=== PATIENT | male | born 1980 | race Caucasian/White ===

== ENCOUNTER 2016-05-04 03:17 | Inpatient (IN) | payer OTHER ==
[~2016-05-04] VITALS: Ht 167.6 cm; Wt 85.3 kg
[~2016-05-04 03:17] MED LIST: ASPI-664 PO; CARV3.1260 PO; DIGO250T PO; FURO20TA3 PO; LOSA50TA2 PO
--- NOTE | 2016-05-04 03:54 | ERA ---
ER Documentation Chief Complaint Date/Time DATE: 05/04/16 TIME: 03:54 Chief Complaint SOB HPI The patient is a 35-year-old male, presenting to the ER because of acute dyspnea for the last 3 days, worse today, associated with bilateral leg edema. He has similar symptoms previously due to acute CHF exacerbation. He did not take medication for the last 2 months. He denies fever, chills, neck pain, chest pain. He complains of orthopnea and paroxysmal nocturnal dyspnea. Denies abdominal pain, vomiting, diarrhea, constipation. He smokes, denies drinking, does amphetamine Past medical history: History of CHF, hypertension, cardiomyopathy Past surgical history: None ROS All systems reviewed and are negative except as per history of present illness. Medications Home Meds Active Scripts Furosemide* (Furosemide*) 20 Mg Tablet, 20 MG PO DAILY, #60 TAB Prov:BRET KAUFMAN MD 12/21/15 Losartan Potassium* (Cozaar*) 50 Mg Tablet, 100 MG PO DAILY for 30 Days, #30 TAB Prov:BRET KAUFMAN MD 12/21/15 Digoxin* (Digitek*) 250 Mcg Tablet, 0.25 MG PO QHS for 30 Days, #30 TAB Prov:BRET KAUFMAN MD 12/21/15 Carvedilol* (Carvedilol*) 3.125 Mg Tablet, 3.125 MG PO BID for 30 Days, #60 TAB Prov:BRET KAUFMAN MD 12/21/15 Aspirin* (Aspirin* EC) 81 Mg Tablet.dr, 81 MG PO DAILY for 30 Days Prov:BRET KAUFMAN MD 12/21/15 Allergies Allergies: Coded Allergies: No Known Allergy (Unverified , 12/20/15) PMhx/Soc Anesthesia Reaction: No Hx Neurological Disorder: No Hx Respiratory Disorders: No Hx Cardiac Disorders: No (CHF, HTN) Hx Psychiatric Problems: No Hx Miscellaneous Medical Probl: No Hx Alcohol Use: No (Only socially) Hx Substance Use: Yes (Meth) Hx Tobacco Use: Yes Physical Exam Vitals Vital Signs Date Time Temp Pulse Resp B/P Pulse Ox O2 Delivery O2 Flow Rate FiO2 05/04/16 04:19 Nasal Cannula 2 05/04/16 03:21 97.5 120 28 183/133 98 Physical Exam Const: No acute distress. Head: Atraumatic. Eyes: Normal Conjunctiva. ENT: Normal External Ears, Nose and Mouth. Neck: Full range of motion. No meningismus. Resp: Bibasilar crackles Cardio: Regular but tachycardic Abd: Soft, non distended, normal bowel sounds, non tender. Skin: No petechiae or rashes. Back: No midline or flank tenderness. Ext: Mild bilateral lower extremity edema, no calf tenderness Neur: Awake and alert. No focal deficit Psych: Normal Mood and Affect. Result Diagram: 05/04/1641905/04/16419 Results 24 hrs Laboratory Tests Test 05/04/16 04:20 Activated Partial Thromboplast Time 33.2Sec Anion Gap 17 B-Type Natriuretic Peptide 4300PG/ML Basophils # 0.010^3/ul Basophils % 0.3% Blood Urea Nitrogen 18mg/dl Calcium Level 8.9mg/dl Carbon Dioxide Level 24mmol/L Chloride Level 107mmol/L Cholesterol Level 129mg/dl Cholesterol/HDL Ratio 5.1RATIO Creatine Kinase 259IU/L Creatine Kinase Index 0.7 Creatinine 1.10mg/dl Creatinine Kinase MB (Mass) 1.90ng/ml Eosinophils # 0.310^3/ul Eosinophils % 3.0% Ethyl Alcohol Level < 10.0mg/dl Glucose Level 100mg/dl HDL Cholesterol 25mg/dl Hematocrit 47.9% Hemoglobin 15.7g/dl Hemoglobin A1c 5.7% INR International Normalized Ratio 1.25 LDL Cholesterol, Calculated 77mg/dl Lymphocytes # 2.210^3/ul Lymphocytes % 25.0% Magnesium Level 1.8mg/dl Mean Corpuscular Hemoglobin 31.6pg Mean Corpuscular Hemoglobin Concent 32.7g/dl Mean Corpuscular Volume 96.6fl Mean Platelet Volume 8.5fl Monocytes # 0.610^3/ul Monocytes % 7.1% Neutrophils # 5.810^3/ul Neutrophils % 64.6% Nucleated Red Blood Cells # 0.010^3/ul Nucleated Red Blood Cells % 0.0/100WBC Platelet Count 56474^3/UL Potassium Level 3.9mmol/L Prothrombin Time 15.8Sec Prothrombin Time Ratio 1.2 Red Blood Count 4.9610^6/ul Red Cell Distribution Width 13.6% Sodium Level 144mmol/L Thyroid Stimulating Hormone (TSH) 4.170MIU/L Triglycerides Level 136mg/dl Troponin I 0.045ng/ml Urine Amphetamines Screen POSITIVE Urine Barbiturates Negative Urine Benzodiazepines Screen Negative Urine Cannabinoids Negative Urine Cocaine Screen Negative Urine Opiates Screen Negative White Blood Count 9.010^3/ul Current Medications Medications (Trade) Dose Ordered Sig/Jeff Route PRN Reason Start Time Stop Time Status Last Admin Dose Admin Furosemide (Lasix) 40 mg ONCE ONCE IV 05/04/16 04:00 05/04/16 04:01 DC 05/04/16 04:26 Procedures/MDM EKG: Read by emergency physician Rate/Rhythm: Sinus tachycardia 118 beats/min QRS, ST, T-waves: No ST elevation, no T inversion, by atrial enlargement, rightward axis, nonspecific ST abnormality Impression: Abnormal EKG EKG: Read by emergency physician at 4:11 AM Rate/Rhythm: Sinus tachycardia 104 beats/min QRS, ST, T-waves: No ST elevation, no T inversion, biatrial enlargement, nonspecific ST abnormality Impression: Abnormal EKG MEDICAL MAKING DECISION: The patient is a 35-year-old male, presenting with acute CHF exacerbation due to medical noncompliance, amphetamine abuse, acute accelerated hypertension. He was treated with Lasix 40 mg IV with good response. The differential diagnoses considered include but are not limited to asthma, COPD, pneumonia, pulmonary embolus, pleural effusion, congestive heart failure. Departure Diagnosis: Primary Impression: CHF (congestive heart failure) Additional Impressions: Accelerated hypertension Amphetamine abuse Condition: Stable Comments I discussed the findings with the patient. I discussed the patient with the on- call hospitalist Dr. Pike who was made aware of the lab, the treatment, the patient condition. The patient is admitted to I discussed the findings with the patient. I discussed the patient with his physician who was made aware of the lab, the treatment, the patient condition. The patient is admitted to telemetry MINNA MOREL MD May 04, 2016 03:54
[2016-05-04] MEDS ORDERED: FUROSEMIDE 40 MG INJ IV ONE ×2 (04:00→08:00)
--- NOTE | 2016-05-04 04:47 | RADRPT ---
PROCEDURE: CHEST - 1 VIEW CLINICAL INDICATION: 35-year-old male with shortness of breath. TECHNIQUE: A single frontal AP semi-erect view of the chest was performed portably. The images we re reviewed on a PACS workstation. COMPARISON: Chest x-ray December 20, 2015. FINDINGS: The cardiomediastinal silhouette is moderately enlarged. There is mild pulmonary vascular congestio n. There is elevation right hemidiaphragm. There is no evidence for focal consolidation. There is no evidence for pneumothorax. The osseous structures are intact. IMPRESSION: 1. Cardiomegaly. 2. Pulmonary vascular congestion. .Mateo Abreu MD, MD Date Time Electronically viewed and signed by .Mateo Abreu MD, on 05/04/2016 04:47 .M/
--- NOTE | 2016-05-04 04:48 | HP ---
Date/Time of Note Date/Time of Note DATE: 05/04/16 TIME: 04:41 Assessment/Plan VTE Prophylaxis VTE Prophylaxis Intervention: heparin Assessment/Plan Assessment/Plan 35 yo male with a past medical history of cardiomyopathy with low EF 20% 2/2 to methamphetamine abuse, smoker, CHF with systolic dysfunction, who came in for shortness of breath. 1. Shortness of breath 2/2 to CHF exac acute on chronic systolic dysfunction - will admit the patient to telemetry, cycle cardiac markers, consult cardio, check ECHO, TSH/Mag levels, IV lasix, I/O's 2. Methamphetamine abuse - consult to social services counselor 3. Cardiomyopathy with low EF - 20% - see #1 4. GI ppx - pepcid 5. DVT ppx - heparin answered all of his questions. as per clinical course. this history and physical took greater then 45 minutes to complete HPI/ROS Admit Date/Time Admit Date/Time 05/04/2016, 4:42 am Hx of Present Illness 35 yo male with a past medical history of cardiomyopathy with low EF 20% 2/2 to methamphetamine abuse, smoker, CHF with systolic dysfunction, who came in for shortness of breath. He smoked methamphetamines yesterday morning, and since then he had shortness of breath, with lower extremity edema. Otherwise denies any chest pain, loss of consciousness, nausea/vomiting/diarrhea/fevers/chills, or other constitutional symptoms. ED course: IV lasix ECHO 12/2015 Conclusions 1. Mild concentric left ventricular hypertrophy. Mild enlargement of left ventricle cavity. Severe global left ventricular systolic dysfunction. Ejection fraction is visually estimated at 20 %. Tissue Doppler/Mitral Doppler indices are consistent with restrictive physiology with markedly elevated left atrial pressure (Stage III-IV diastolic dysfunction). 2. Upper limit of normal left atrial size. 3. Mitral valve leaflets appear mildly thickened. Mild mitral annular calcification. Trace mitral regurgitation. 4. No significant aortic stenosis or insufficiency. Aortic cusps appear mildly calcified. 5. Normal appearance of the tricuspid valve. Estimated peak PA systolic pressure 32 mmHg. There is mild tricuspid regurgitation. 6. Dilated IVC with respiratory collapse consistent with elevated right atrial pressure. ROS 14 point review of systems completed, please refer to HPI for any positive findings PMH/Family/Social Past Medical History Medical History: congestive heart failure Past Surgical History Past Surgical Hx: no surgical history Family History Significant Family History: no pertinent family hx Social History Alcohol Use: none Smoking Status: Current every day smoker (5 cig/day x 4 years) Drug Use: other (methamphetamines) Exam/Review of Systems Vital Signs Vitals Vital Signs Date Time Temp Pulse Resp B/P Pulse Ox O2 Delivery O2 Flow Rate FiO2 05/04/16 04:19 Nasal Cannula 2 05/04/16 03:21 97.5 120 28 183/133 98 Exam Exam Gen Yvette: NAD, AAOx4 HEENT: NC/AT, PERRLA, EOMI, no pharyngeal erythema, no tonsillar exudates, no lymphadenopathy, no JVD, no carotid bruits NECK: supple, no thyromegaly THORAX: symmetrical, no obvious deformities CV: S1S2, RRR, no M/G/R Lungs: CTAB no W/C/R/R Abd: soft, NT/ND, +BS, no rebound, no guarding, neg HSM EXT: bilateral lower extremity edema, no ecchymosis, no clubbing, FROM Neuro: CN II-XII grossly intact, no focal deficits Psych: good mentation, alert and oriented, good mood and affect Skin: C/D/I Procedures Procedures CXR IMPRESSION: 1. Cardiomegaly. 2. Pulmonary vascular congestion. OLI QUILES MD May 04, 2016 04:48
[2016-05-04 04:50] LABS: BASOPHILS % 0.3 % (0.0-2.0); EOSINOPHILS # 0.3 10^3/ul (0.0-0.5); HEMATOCRIT 47.9 % (42.0-52.0); HEMOGLOBIN 15.7 g/dl (14.0-18.0); LYMPHOCYTES # 2.2 10^3/ul (0.8-2.9); MEAN CORPUSCULAR HEMOGLOBIN 31.6 pg (29.0-33.0); MEAN CORPUSCULAR HGB CONC 32.7 g/dl (32.0-37.0); MEAN CORPUSCULAR VOLUME 96.6 fl (82.0-101.0); MEAN PLATELET VOLUME 8.5 fl (7.4-10.4); MONOCYTE # 0.6 10^3/ul (0.3-0.9); MONOCYTES % 7.1 % (0.0-11.0); NEUTROPHIL # 5.8 10^3/ul (1.6-7.5); NEUTROPHILS % 64.6 % (39.0-77.0); PLATELET COUNT 298 10^3/UL (140-440); RED BLOOD COUNT 4.96 10^6/ul (4.70-6.10); RED CELL DISTRIBUTION WIDTH 13.6 % (11.5-14.5)
[2016-05-04 04:53] LABS: CONDITION 1
[2016-05-04 04:57] LABS: CHLORIDE 107 mmol/L (97-110); POTASSIUM 3.9 mmol/L (3.5-5.1); SODIUM 144 mmol/L (135-144)
[2016-05-04 04:59] LABS: INR 1.25; PROTIME 15.8 Sec (12.2-14.2); PT RATIO 1.2
[2016-05-04 05:00] LABS: ANION GAP 17 (8-16); BLOOD UREA NITROGEN 18 mg/dl (7-20); CARBON DIOXIDE 24 mmol/L (21-31); GLUCOSE 100 mg/dl (70-220); PARTIAL THROMBOPLASTIN TIME 33.2 Sec (25.0-35.0)
[2016-05-04] MEDS ORDERED: NACL 0.9% 3 ML SYG IV SCH (05:00)
[2016-05-04] MEDS ORDERED: ONDANSETRON 4 MG INJ IV PRN (05:00)
[2016-05-04] MEDS ORDERED: ACETAMINOPHEN 325 MG TAB PO PRN (05:00)
[2016-05-04] MEDS ORDERED: NITROGLYCERIN (SL) 0.4 MG TAB SL PRN (05:00)
[2016-05-04] MEDS ORDERED: LORAZEPAM 2 MG INJ IV PRN (05:00)
[2016-05-04 05:01] LABS: BARBITURATES Negative (NEGATIVE); BENZODIAZEPINES Negative (NEGATIVE); CALCIUM 8.9 mg/dl (8.4-10.2); CANNABINOIDS Negative (NEGATIVE); COCAINE Negative (NEGATIVE); ETHANOL < 10.0 mg/dl; OPIATES Negative (NEGATIVE)
[2016-05-04 05:11] LABS: B-TYPE NATRIURETIC PEPTIDE 4300 PG/ML (0-125)
[2016-05-04 05:14] LABS: TROPONIN-I 0.036 ng/ml (0.00-0.12)
[2016-05-04 07:11] LABS: CHOL/HDL RATIO 5.1 RATIO; MAGNESIUM 1.8 mg/dl (1.7-2.5)
[2016-05-04 07:19] LABS: CK-MB 1.9 ng/ml (0.0-2.4)
[2016-05-04 07:21] LABS: TROPONIN-I 0.045 ng/ml (0.00-0.12)
[2016-05-04] MEDS ORDERED: MAGNESIUM SULFATE 2 GM/50 ML 50 ML IVPB ONE (07:30)
[2016-05-04 07:41] LABS: THYROID STIMULATING HORMONE 4.17 MIU/L (0.465-4.680)
[2016-05-04] MEDS ORDERED: HEPARIN 5,000 UNIT/0.5 ML SYG SC SCH (09:00)
[2016-05-04] MEDS: FAMOTIDINE 20 MG TAB PO SCH ×2 (09:22→20:57)
[2016-05-04] MEDS: ASPIRIN 81 MG TAB PO SCH (09:22)
--- NOTE | 2016-05-04 09:37 | RADRPT ---
Echocardiogram Report Patient Name: ELVIRA ROWAN Gender: Male Date: 1980 Study Date: 04-May-2016 Engineering Faculty Member: Luz Marina Jessica RDCS Location: Ref. Physician: OLI QUILES Quality: Good Procedures: Transthoracic echocardiogram with complete 2D, M-Mode, and doppler examination. Indications: Congestive Heart Failure. 2D/M Mode Doppler Measurement Value Normal Ranges Measurement Value Normal Ranges LVIDd 2D 5.2 3.5 - 5.6 cm AV Peak Sudeep 1.1 m/sec LVIDs 2D 5.0 2.1 - 4.1 cm AV Peak PG 4.4 mmHg LVPWd 2D 1.3 0.6 - 1.1 cm LVOT Peak Sudeep 0.6 m/sec IVSd 2D 1.3 0.6 - 1.1 cm LVOT Peak PG 1.5 mmHg AoR Diam 2D 2.5 2.0 - 3.7 cm TR Peak Sudeep 2.4 m/sec EDV 2D 131.3 cm3 TR Peak PG 23.5 mmHg ESV 2D 123.3 cm3 RVSP 39.0 mmHg LA Dimen 2D 4.1 2.3 - 4.0 cm Findings Left Ventricle: Mild concentric left ventricular hypertrophy. Mild enlargement of left ventricle cavity. Severe global left ventricular systolic dysfunction. Ejection fraction is visually estimated at 15 %. There is global hypokinesis involving all segments of the left ventricle. Right Ventricle: Normal right ventricular size. Moderate right ventricular hypokinesis. Left Atrium: There is mild enlargement of left atrium. Right Atrium: The right atrium is normal in size. Mitral Valve: Normal appearance and function of the mitral valve with trace physiologic regurgitation. Aortic Valve: Normal appearance of the aortic valve. No significant aortic stenosis or insufficiency. Tricuspid Valve: Normal appearance of the tricuspid valve. Estimated peak PA systolic pressure 39 mmHg. There is mild tricuspid regurgitation. Pulmonic Valve: There is mild pulmonic regurgitation. Pericardium: Normal pericardium with no significant pericardial effusion. Aorta: Normal aortic root. IVC: Dilated IVC without respiratory collapse consistent with elevated right atrial pressure. Conclusions 1.Mild concentric left ventricular hypertrophy. Mild enlargement of left ventricle cavity. Severe global left ventricular systolic dysfunction. Ejection fraction is visually estimated at 15 %. There is global hypokinesis involving all segments of the left ventricle. apical thrombus can not be ruled out. 2.There is mild enlargement of left atrium. 3.Normal appearance and function of the mitral valve with trace physiologic regurgitation. 4.Normal appearance of the tricuspid valve. Estimated peak PA systolic pressure 39 mmHg. There is mild tricuspid regurgitation. 5.Normal appearance of the aortic valve. No significant aortic stenosis or insufficiency. Electronically Signed By: Warren Johnston 04-May-2016 09:36:57 -0800 Patient Name: ELVIRA ROWAN Study Date: 04-May-[id number]
[2016-05-04] MEDS ORDERED: DIGOXIN 500 MCG INJ IV ONE (10:00)
--- NOTE | 2016-05-04 11:10 | QN ---
Documentation Comment The patient was seen and evaluated. Labs reviewed. Plan of care was explained to the patient's family. Case discussed with Dr. Floyd. YOLIS SOTO NP May 04, 2016 11:10
[2016-05-04] MEDS: RIVAROXABAN 20 MG TABLET PO SCH (11:16)
[2016-05-04] MEDS: LISINOPRIL 20 MG TAB PO SCH ×2 (11:16→20:57)
[2016-05-04 12:06] LABS: CK-MB 1.82 ng/ml (0.0-2.4)
[2016-05-04 12:30] VITALS: TEMP 96.4
[2016-05-04 12:30] LABS: TROPONIN-I 0.034 ng/ml (0.00-0.12)
--- NOTE | 2016-05-04 14:19 | QN ---
Documentation Comment Observation Note: Time: 4 hours Family Hx: Negative for diabetes Evaluation: Multiple exams showed improving symptoms and no evidence of clinical decompensation. VERO JONES MD May 04, 2016 14:19
[2016-05-04] MEDS: hydrALAzine 20 MG INJ IV PRN (16:16)
[2016-05-04 17:00] VITALS: BP 140/89; PULSE 104; RESP 20
[2016-05-04 17:36] VITALS: Ht 167.6 cm; Wt 85.3 kg
[2016-05-04 17:43] VITALS: PULSE 105
[2016-05-04 19:54] VITALS: BP 161/103; RESP 18
[2016-05-04 20:03] VITALS: PULSE 99
--- NOTE | 2016-05-04 21:19 | CONS ---
DATE OF ADMISSION: 05/04/2016 DATE OF CONSULTATION: TYPE OF CONSULTATION: Cardiology REFERRING PHYSICIAN: Dima Pike MD REASON FOR CONSULTATION: Congestive heart failure. CHIEF COMPLAINT: Shortness of breath, tachycardia. HISTORY OF PRESENT ILLNESS: Thank you for this referral. History obtained from the patient, kathrine ghotra review of the old chart, admitted to the hospital. This is a -beyc-ncu gentleman wit h history of severe cardiomyopathy, most likely methamphetamine use, who came to emergency room with acute shortness of breath over the past 4 days. The patient denies any chest pain or pressure to m e. He has been using methamphetamine again. He has been out of his medications and has not been ta carolyne any of his medications. He came in short of breath. No wheezing, no cough. MEDICATIONS AT HOME: Reviewed, currently none. SOCIAL HISTORY: The patient occasionally smokes, but stated he has quit now. Does use methamphetam ine. Last use was 2 days ago. Denies any alcohol use. FAMILY HISTORY: No reported early coronary artery disease. ALLERGIES: NO REPORTED ALLERGIES. REVIEW OF SYSTEMS: As above mentioned. PHYSICAL EXAMINATION: VITAL SIGNS: Temperature 98.7, heart rate of 106, blood pressure 172/107, respiratory rate of 22. HEENT: Normocephalic, atraumatic. Pupils are equal. CARDIOVASCULAR: Tachycardic. GASTROINTESTINAL: Soft, nontender. EXTREMITIES: No significant edema. NEUROLOGIC: Awake and alert. PSYCHIATRIC: Appears to be calm and pleasant. LABORATORY AND DIAGNOSTIC DATA: Echocardiogram was personally reviewed, which showed severe LV dysf unction, ejection fraction about 15%. Apical thrombus cannot be ruled out. WBC of 9, hemoglobin 15.7, platelets of 298. Sodium 144, potassium 3.9, BUN of 18, creatinine 1.1, glucose 100. EKG: Sinus tachycardia. Incomplete intraventricular conduction delay. Chest x-ray showed congestiv e heart failure and cardiomegaly. ASSESSMENT AND PLAN 1. Congestive heart failure exacerbation secondary to noncompliance, systolic dysfunction, acute on chronic. 2. Severe left ventricular dysfunction, most likely related to drug abuse. 3. Poor compliance with medications. 4. Hypertension. 5. Possible left ventricular thrombus. RECOMMENDATIONS: I will give the patient a dose of digoxin. Diuresis was started. We will start t he patient on anticoagulation with Xarelto given the concern about the LV thrombus. He is not a goo d candidate for Coumadin due to his poor compliance. The patient will be admitted for further enmanuel p. GENE inhibitor will be started. Dictated By: AMEE CASTANEDA MD AV/ALIN Conf#: [id number] DID#: [id number] CC: DIMA PIKE MD;*EndCC*
[2016-05-05] VITALS (13 sets, daily range): BP systolic 115–176; BP diastolic 59–112; PULSE 93–116; RESP 18–22
[2016-05-05] MEDS: morphine 2 MG INJ IV PRN ×3 (05:26→19:20)
[2016-05-05] MEDS: hydrALAzine 20 MG INJ IV PRN (05:50)
[2016-05-05 06:20] LABS: ADD SCAN DIFF NO
[2016-05-05 06:47] LABS: PHOSPHORUS 5.4 mg/dl (2.5-4.9)
[2016-05-05 06:48] LABS: BASOPHILS % 0.4 % (0.0-2.0); EOSINOPHILS # 0.4 10^3/ul (0.0-0.5); EOSINOPHILS % 3.8 % (0.0-7.0); HEMATOCRIT 50.2 % (42.0-52.0); HEMOGLOBIN 16.7 g/dl (14.0-18.0); LYMPHOCYTES # 1.9 10^3/ul (0.8-2.9); LYMPHOCYTES % 19.8 % (15.0-51.0); MEAN CORPUSCULAR HEMOGLOBIN 31.3 pg (29.0-33.0); MEAN CORPUSCULAR HGB CONC 33.3 g/dl (32.0-37.0); MEAN CORPUSCULAR VOLUME 94.2 fl (82.0-101.0); MONOCYTE # 0.8 10^3/ul (0.3-0.9); MONOCYTES % 7.7 % (0.0-11.0); NEUTROPHIL # 6.5 10^3/ul (1.6-7.5); NEUTROPHILS % 67.6 % (39.0-77.0); PLATELET COUNT 308 10^3/UL (140-415); RED BLOOD COUNT 5.33 10^6/ul (4.70-6.10); RED CELL DISTRIBUTION WIDTH 12.3 % (11.5-14.5); WHITE BLOOD COUNT 9.7 10^3/ul (4.8-10.8)
[2016-05-05 06:48] LABS: POTASSIUM 3.6 mmol/L (3.5-5.1)
[2016-05-05 06:51] LABS: CREATININE 1.16 mg/dl (0.61-1.24)
[2016-05-05 06:52] LABS: CALCIUM 8.8 mg/dl (8.4-10.2)
[2016-05-05] MEDS: ASPIRIN 81 MG TAB PO SCH (08:00)
[2016-05-05] MEDS: RIVAROXABAN 20 MG TABLET PO SCH (08:00)
[2016-05-05] MEDS: FAMOTIDINE 20 MG TAB PO SCH ×2 (08:00→20:47)
[2016-05-05] MEDS: LISINOPRIL 20 MG TAB PO SCH ×2 (08:00→20:48)
--- NOTE | 2016-05-05 13:57 | PN ---
DATE: 05/05/2016 HOSPITALIST PROGRESS NOTE SUBJECTIVE DATA: Denies any chest pain. Denies dyspnea. Complaints of left foot pain on the dorsal surface. OBJECTIVE DATA: VITAL SIGNS: Temperature 98.0, pulse of 105, respiratory rate 18, blood pressure 146/84, oxygen saturation 97% on room air. GENERAL: This is an obese Citizen Of [place] male lying in bed in no apparent distress. HEENT: Head normocephalic and atraumatic. Eyes: Anicteric sclerae. Conjunctivae clear. ENT: Nasal septum is midline. Oral mucosa is moist. NECK: Supple. No JVD noticed. RESPIRATORY: Bilaterally diminished breath sounds. No adventitious breath sounds heard. No use of accessory muscles of respiration. CARDIAC: Regular rate and rhythm. S1, S2 heard. ABDOMEN: Soft, nontender, nondistended. Bowel sounds positive in all 4 quadrants. GENITOURINARY: Deferred. EXTREMITIES: No cyanosis, no clubbing. Left lower extremity edema and erythema on the dorsal surface with some tenderness to touch. Peripheral pulses palpable in bilateral lower extremities. NEUROLOGIC: The patient is awake, alert and oriented. Cranial nerves are grossly intact. LABORATORY AND DIAGNOSTIC DATA: WBC 9.7, hemoglobin 16.7, hematocrit 50.2, platelet count 340. Sodium 144, potassium 3.6, chloride 102, carbon dioxide 20 , anion gap 17, BUN 19, creatinine 1.16, glucose 105, calcium 8.8, phosphorus 5.4, magnesium 2.0. ASSESSMENT AND PLAN: 1. Acute on chronic congestive heart failure exacerbation with systolic dysfunction. Continue diuretics. Cardiology following the patient. 2. Severe nonischemic cardiomyopathy, ejection fraction of 15%. Continue the patient on GENE inhibitors. 3. Possible left ventricular apical thrombus. The patient is on factor Xa inhibitors. The patient is not a good candidate for Coumadin because of noncompliance. 4. Methamphetamine abuse. Cessation advised. 5. Left foot cellulitis. Will start the patient on antibiotics. 6. Acute gout. The patient is on colchicine. 7. Pulmonary hypertension. PA pressure of 39 mmHg. Etiology unclear. Continue supplemental oxygen. 8. Fluid, electrolytes and nutrition. Continue low-cholesterol diet. 9. Deep venous thrombosis prophylaxis, on factor Xa inhibitors. 10. Gastrointestinal prophylaxis. H2 receptor blockers. Continue to optimization of cardiac medications. Will await cardiac clearance before discharge. The case was discussed with Dr. Saucedo. YOLIS SAUCEDO MD, AM/ALIN Conf#: [id number] DID#: [id number] MTDD
[2016-05-05] MEDS: CEPHALEXIN 500 MG CAP PO SCH ×2 (14:22→20:48)
[2016-05-05] MEDS ORDERED: FUROSEMIDE 20 MG INJ IV ONE (20:00)
[2016-05-05] MEDS ORDERED: DIGOXIN 500 MCG INJ IV ONE (20:00)
[2016-05-05] MEDS: SPIRONOLACTONE 25 MG TAB PO SCH (20:47)
[2016-05-05] MEDS: COLCHICINE 0.6 MG TAB PO SCH (20:48)
[2016-05-05] MEDS ORDERED: HYDROCODONE/APAP (5/325) TAB PO PRN (23:00)
[2016-05-06] VITALS (7 sets, daily range): BP systolic 143–169; BP diastolic 96–116; PULSE 103–112; RESP 18–20
[2016-05-06] MEDS: CEPHALEXIN 500 MG CAP PO SCH ×2 (05:08→13:41)
[2016-05-06 07:11] LABS: ADD SCAN DIFF NO
[2016-05-06 07:22] LABS: BASOPHIL # 0.1 10^3/ul (0.0-0.1); BASOPHILS % 0.5 % (0.0-2.0); EOSINOPHILS # 0.4 10^3/ul (0.0-0.5); EOSINOPHILS % 3.2 % (0.0-7.0); HEMATOCRIT 52.2 % (42.0-52.0); HEMOGLOBIN 17.6 g/dl (14.0-18.0); LYMPHOCYTES # 2.2 10^3/ul (0.8-2.9); LYMPHOCYTES % 19.6 % (15.0-51.0); MEAN CORPUSCULAR HEMOGLOBIN 31.5 pg (29.0-33.0); MEAN CORPUSCULAR HGB CONC 33.7 g/dl (32.0-37.0); MEAN CORPUSCULAR VOLUME 93.5 fl (82.0-101.0); MEAN PLATELET VOLUME 9.9 fl (7.4-10.4); MONOCYTE # 1.1 10^3/ul (0.3-0.9); MONOCYTES % 9.5 % (0.0-11.0); NEUTROPHIL # 7.4 10^3/ul (1.6-7.5); NEUTROPHILS % 66.5 % (39.0-77.0); PLATELET COUNT 337 10^3/UL (140-415); RED BLOOD COUNT 5.58 10^6/ul (4.70-6.10); RED CELL DISTRIBUTION WIDTH 12.3 % (11.5-14.5); WHITE BLOOD COUNT 11.1 10^3/ul (4.8-10.8)
[2016-05-06 07:38] LABS: PHOSPHORUS 5.9 mg/dl (2.5-4.9)
[2016-05-06 07:39] LABS: MAGNESIUM 1.9 mg/dl (1.7-2.5)
[2016-05-06 07:42] LABS: ALBUMIN 3.6 g/dl (3.3-4.9)
[2016-05-06 07:43] LABS: POTASSIUM 4.2 mmol/L (3.5-5.1)
[2016-05-06 07:45] LABS: ALBUMIN/GLOBULIN RATIO 1.09; BILIRUBIN,INDIRECT 1.2 mg/dl (0-1.1); BILIRUBIN,TOTAL 1.2 mg/dl (0.2-1.3); CREATININE 1.23 mg/dl (0.61-1.24); TOTAL PROTEIN 6.9 g/dl (6.1-8.1)
[2016-05-06 07:46] LABS: CALCIUM 8.7 mg/dl (8.4-10.2)
[2016-05-06] MEDS: FAMOTIDINE 20 MG TAB PO SCH (08:21)
[2016-05-06] MEDS: SPIRONOLACTONE 25 MG TAB PO SCH (08:21)
[2016-05-06] MEDS: COLCHICINE 0.6 MG TAB PO SCH (08:22)
[2016-05-06] MEDS: LISINOPRIL 20 MG TAB PO SCH (08:22)
[2016-05-06] MEDS: RIVAROXABAN 20 MG TABLET PO SCH (08:22)
--- NOTE | 2016-05-06 09:10 | CONS ---
Date/Time of Note Date/Time of Note DATE: 05/06/16 TIME: 09:07 Assessment/Plan Assessment/Plan Chief Complaint/Hosp Course 1. Congestive heart failure exacerbation secondary to noncompliance, systolic dysfunction, acute on chronic. 2. Severe left ventricular dysfunction, most likely related to drug abuse. 3. Poor compliance with medications. 4. Hypertension. 5. Possible left ventricular thrombus. Problems: Additional Assessment/Plan 1) on xarelto 2) continue cardiac meds 3) ok to dc 4) advised to return to ED with symptoms 5) would benefit from outpatient fu and consideration of ICD 6) dw patient aspects of care Consultation Date/Type/Reason Admit Date/Time May 04, 2016 at 04:35 Initial Consult Date Type of Consultation: cv 24 HR Interval Summary Free Text/Dictation no chest pain, no sob, no palpitations Detailed Summary Respiratory: no complaints Cardiovascular: no complaints Gastrointestinal: no complaints Musculoskeletal: no complaints Skin: no complaints Neurologic: no complaints Exam/Review of Systems Vital Signs Vitals Vital Signs Date Time Temp Pulse Resp B/P Pulse Ox O2 Delivery O2 Flow Rate FiO2 05/06/16 08:16 106 05/06/16 07:33 97.9 20 169/116 100 05/04/16 17:00 Room Air 05/04/16 04:19 2 Intake and Output 05/05/16 05/05/16 05/06/16 15:00 23:00 07:00 Intake Total 1120 ml 400 ml Output Total 1100 ml Balance 1120 ml -700 ml Exam Constitutional: alert, oriented Head: atraumatic, normocephalic Neck: supple Respiratory: clear to auscultation Cardiovascular: regular rate and rhythm Gastrointestinal: soft Musculoskeletal: nl extremities to inspection Results Result Diagram: 05/06/16 0615 05/06/16 0615 Results 24 hrs Laboratory Tests Test 05/06/16 06:15 Alanine Aminotransferase (ALT/SGPT) 28 Albumin 3.6 Albumin/Globulin Ratio 1.09 Alkaline Phosphatase 105 Anion Gap 18 H Aspartate Amino Transf (AST/SGOT) 30 B-Type Natriuretic Peptide 2350 H Basophils # 0.1 Basophils % 0.5 Blood Urea Nitrogen 18 Calcium Level 8.7 Carbon Dioxide Level 26 Chloride Level 101 Creatinine 1.23 Direct Bilirubin 0.00 Eosinophils # 0.4 Eosinophils % 3.2 Globulin 3.30 H Glucose Level 94 Hematocrit 52.2 H Hemoglobin 17.6 Indirect Bilirubin 1.2 H Lymphocytes # 2.2 Lymphocytes % 19.6 Magnesium Level 1.9 Mean Corpuscular Hemoglobin 31.5 Mean Corpuscular Hemoglobin Concent 33.7 Mean Corpuscular Volume 93.5 Mean Platelet Volume 9.9 Monocytes # 1.1 H Monocytes % 9.5 Neutrophils # 7.4 Neutrophils % 66.5 Nucleated Red Blood Cells # 0.0 Nucleated Red Blood Cells % 0.0 Phosphorus Level 5.9 H Platelet Count 337 Potassium Level 4.2 Red Blood Count 5.58 Red Cell Distribution Width 12.3 Sodium Level 141 Total Bilirubin 1.2 Total Protein 6.9 White Blood Count 11.1 H Medications Medications Current Medications Lorazepam (Ativan) 0.5 mg Q6H PRN IV ANXIETY Last administered on 05/04/16 06: 11; Admin Dose 0.5 MG; Start 05/04/16 at 05:00 Ondansetron HCl (Zofran Inj) 4 mg Q6H PRN IV NAUSEA AND/OR VOMITING; Start at 05:00 Nitroglycerin (Nitroglycerin (Sl Tab) 0.4 Mg) 1 tab Q5M PRN SL CHEST PAIN; Start 05/04/16 at 05:00 Acetaminophen (Tylenol Tab) 650 mg Q6H PRN PO PAIN LEVEL 1-3 OR FEVER; Start at 05:00 Morphine Sulfate (morphine) 2 mg Q4H PRN IV PAIN LEVEL 7-10 Last administered on 05/05/16 19:20; Admin Dose 2 MG; Start 05/04/16 at 05:00 Famotidine (Pepcid) 20 mg Q12 PO Last administered on 05/06/16 08:21; Admin Dose 20 MG; Start 05/04/16 at 09:00 Lisinopril (Zestril) 20 mg BID PO Last administered on 05/06/16 08:22; Admin Dose 20 MG; Start 05/04/16 at 11:00 Rivaroxaban (Xarelto) 20 mg DAILY PO Last administered on 05/06/16 08:22; Admin Dose 20 MG; Start 05/04/16 at 11:00 Hydralazine HCl (Apresoline) 10 mg Q6H PRN IV SBP>160 Last administered on 2/24 /17at 05:50; Admin Dose 10 MG; Start 05/04/16 at 11:30 Cephalexin (Keflex) 500 mg Q8 PO Last administered on 05/06/16 05:08; Admin Dose 500 MG; Start 05/05/16 at 14:00 Digoxin (Digoxin) 0.125 mg DAILY@13 PO ; Start 05/06/16 at 13:00 Carvedilol (Coreg) 3.125 mg BID PO Last administered on 05/06/16 08:22; Admin Dose 3.125 MG; Start 05/05/16 at 21:00 Spironolactone (Aldactone) 25 mg DAILY PO Last administered on 05/06/16 08:21 ; Admin Dose 25 MG; Start 05/05/16 at 20:00 Colchicine (Colchicine) 0.6 mg BID PO Last administered on 05/06/16 08:22; Admin Dose 0.6 MG; Start 05/05/16 at 21:00 Acetaminophen/ Hydrocodone Bitart ([place] (5/325)) 1 tab Q6H PRN PO PAIN Last administered on 05/05/16 23:21; Admin Dose 1 TAB; Start 05/05/16 at 23:00 ANTONIO LEDEZMA MD May 06, 2016 09:10
--- NOTE | 2016-05-06 11:18 | PDOCDIS ---
Discharge Instructions DIAGNOSIS Discharge Diagnosis: CHF exacerbation. Cardiomyopathy. Substance abuse. CONDITION Patient Condition: Stable HOME CARE INSTRUCTIONS: Special Diet: 2g na FOLLOW UP/APPOINTMENTS Appointments Pedro Dodson MD Specialty: Internal Medicine Office Address: [address] [place], [place] [address] [id number] Office OTHER ORDERS: Other Orders: 1. Take a low-sodium diet. 2. Take medications as per prescription. 3. Use caution with the use of power tools and sharp instruments. Avoid contact sports. 4. Avoid the use of recreational drugs. 5. Please follow-up with your primary care physician in 2 weeks. If you do not have a primary care physician, please call Dr. Pedro Dodson's office. 6. Please follow-up with Dr. Johnston. 7. Please call 911 or go to the nearest emergency room if you have chest pain, significant dyspnea, increased swelling of bilateral lower extremities, or any other unusual signs/symptoms. YOLIS SOTO NP May 06, 2016 11:18
[2016-05-06] MEDS ORDERED: RIVA20TA PO (11:25)
[2016-05-06] MEDS ORDERED: COLC0.6T6 PO ×2 (11:25→11:32)
[2016-05-06] MEDS ORDERED: LISI20TA11 PO (11:25)
[2016-05-06] MEDS ORDERED: CEPH500C PO (11:25)
[2016-05-06] MEDS ORDERED: HYDR-3498 PO (11:25)
[2016-05-06] MEDS ORDERED: SPIR25TA PO (11:25)
[2016-05-06] MEDS ORDERED: DIGOXIN 0.125 MG TAB PO SCH (13:00)
--- NOTE | 2016-05-07 02:20 | DS ---
DATE OF ADMISSION: 05/04/2016 DATE OF DISCHARGE: 05/06/2016 FINAL DIAGNOSES: 1. Acute on chronic congestive heart failure exacerbation. Systolic dysfunction. 2. Severe nonischemic cardiomyopathy with ejection fraction of 15%. 3. Possible left ventricular apical thrombus. 4. Methamphetamine abuse. 5. Left foot cellulitis. 6. Pulmonary hypertension. 7. Acute gouty arthritis. 8. Noncompliance. 9. Obesity. CONSULTANTS: 1. Dr. Warren Johnston, Cardiology. 2. Dr. Freddy Hale, Cardiology. HOSPITAL COURSE: This is a 35-year-old Citizen Of The [place] male with past medical history of cardiomyopathy secondary to methamphetamine abuse and congestive heart failure who came to the emergency room with chief complaint of shortness of breath. The patient smoked methamphetamine on the previous day and since then he has been having dyspnea and bilateral lower extremity edema. Otherwise, the patient denied any chest pain, loss of consciousness, nausea, vomiting, or diaphoresis. In the emergency room, the patient was noticed to have cardiomegaly with pulmonary vascular congestion. The patient was also noticed to have elevated BNP. Provided the patient's history of present illness and his comorbidities, a clinical decision was made to admit the patient to inpatient setting to have him further evaluated. The patient was admitted to inpatient telemetry floor. Serial troponins were ordered. A cardiology consult was obtained. A 2D echocardiogram was ordered. Patient's respiratory distress was concluded to be secondary to congestive heart failure exacerbation, acute on chronic systolic dysfunction. The patient was diuresed adequately with improvement in the patient's symptoms. The patient 's 2D echocardiogram again revealed an ejection fraction of 15%. The 2D echocardiogram also revealed a possible left apical thrombus. Hence, the patient was started on factor Xa inhibitors. The patient is not a good candidate for Coumadin because of the patient's history of poor medication compliance. The patient was maintained on GENE inhibitors and beta blockers along with aldosterone antagonists for his severe cardiomyopathy. The patient was also noticed to have pulmonary hypertension with a PA pressure of 39 mmHg. The patient was maintained on supplemental oxygen for the same. The patient was noticed to have left forefoot cellulitis. Hence, the patient was started on appropriate antibiotics. The patient was also noticed to have acute gouty arthritis. The patient was started on colchicine with improvement in the patient's symptoms. The patient continues to use methamphetamine despite his clinical condition. The patient was advised multiple times on the importance of staying away from the use of methamphetamine. The patient had a stable hospital course. The patient was cleared by Cardiology to be discharged home. The patient denied any complaints at the time of discharge. DISCHARGE DISPOSITION/PLAN: The patient will be discharged home today. The patient was instructed to take a low sodium diet. He was instructed to take medications as per prescription. He was instructed to use caution with the use of a power tools and sharp instruments and to avoid contact sports because of being on blood thinners. The patient was instructed to avoid use of recreational drugs. He was instructed to follow up with his primary care physician in 2 weeks and if he does not have a primary care physician, to please call Dr. Pedro Dodson's office. The patient was instructed to follow up with Dr. Johnston. He was instructed to call 911 or go to the nearest emergency room if he has any chest pain, significant dyspnea, increased swelling of bilateral lower extremities or any other unusual signs/symptoms. The patient verbalized understanding of his discharge instructions. CONDITION AT DISCHARGE: Stable. DISCHARGE MEDICATIONS: 1. Keflex 500 mg p.o. q.8 hours x7 days. 2. Colchicine 0.6 mg p.o. b.i.d. for 5 days. 3. [place] 5/325 one tablet p.o. q.6 hours p.r.n. pain (10 tablets). 4. Lisinopril 10 mg p.o. b.i.d. 5. Xarelto 20 mg p.o. daily. 6. Aldactone 25 mg p.o. daily. 7. Coreg 3.125 mg p.o. b.i.d. 8. Digoxin 0.25 mg p.o. at bedtime. 9. Lasix 20 mg p.o. daily. Case management consult was obtained to ensure the patient will be able to get Xarelto as outpatient. PERTINENT LABORATORY AND DIAGNOSTIC DATA: 1. 2D echocardiogram. Mildly concentric left ventricular hypertrophy. Severe global left ventricular systolic dysfunction. Ejection fraction is 15%. There is global hypokinesis involving all segments of the left ventricle. Apical thrombus cannot be ruled out. Estimated peak PA systolic pressure of 39 mmHg. There is mild tricuspid regurgitation. 2. Chest x-ray upon admission. Cardiomegaly. Pulmonary vascular congestion. 3. Fasting lipid panel: Triglycerides 136, total cholesterol 129, LDL 77, HDL 25. 4. Hemoglobin A1c 5.7. 5. Urine drug toxicology positive for amphetamines. 6. Latest CBC: WBC 11.1, hemoglobin 17.6, hematocrit 52.2, platelet count 337. 7. Latest BMP: Sodium 144, potassium 3.9, chloride 107, carbon dioxide 25, anion gap 17, BUN 18, creatinine 1.10, glucose 100, calcium 8.9, magnesium 1.8. At this time, I would like to thank all the consultants for seeing the patient and providing clinical recommendations. The case and management of this patient was fully discussed with Dr. Saucedo. Approximately 40 minutes was spent coordinating the discharge on this patient. YOLIS SAUCEDO MD, AM/ALIN Conf#: [id number] DID#: [id number] MTDD
--- NOTE | 2016-05-07 17:13 | PN ---
DATE: 05/05/2016 CARDIOLOGY FOLLOWUP SUBJECTIVE: The patient is breathing better, feeling better and wants to go home. Denies any chest pain or pressure to me. Complains of left foot pain. MEDICATIONS: Reviewed. PHYSICAL EXAMINATION: VITAL SIGNS: Temperature 98, heart rate of 190, blood pressure 170/ , respiration rate of 18, s aturating 97%. HEENT: Normocephalic, atraumatic. Pupils are equal and round. NECK: Oropharynx with poor dentition. CARDIOVASCULAR: Tachycardic. Systolic murmur. PULMONARY: No wheezes. GASTROINTESTINAL: Obese, soft. EXTREMITIES: Left foot edema. NEUROLOGIC: Awake, responds appropriately. PSYCHIATRIC: Appears to be calm and pleasant. LABORATORY: WBC of 9.7, hemoglobin 16.7, platelet 308. Sodium 144, potassium 3.6, BUN of 19, creat inine 1.19, glucose 105. Uric acid 11.2. ProBNP of 2860. I's and O's, 700 in and 2550 out. ASSESSMENT AND PLAN: 1. Congestive heart failure, acute on chronic, secondary to systolic dysfunction and poor complianc e. 2. Severe left ventricular (LV) dysfunction, possible LV thrombus. 3. History of hypertension. 4. Amphetamine use. 5. Poor compliance with the medication. 6. Gout of the foot. RECOMMENDATIONS: I will start the patient on colchicine. Will give her a dose of Lasix now and issa orrow. A beta sara will be added. Digoxin will be continued. Discharge planning for tomorrow p ossibly. Dictated By: AMEE CASTANEDA MD AV/ALIN Conf#: [id number] DID#: [id number] CC: YOLIS SOTO NP;*EndCC*
== END 2016-05-06 14:30 | disposition home or self-care (01) | DRG 292 ==
LOC: E/R 03:17 → TEL 04:35
PROVIDERS: ADMIT Student in an Organized Health Care Education/Training Program; ATTEND Student in an Organized Health Care Education/Training Program
DX: I50.23 Acute on chronic systolic (congestive) heart failure (principal); I42.9 Cardiomyopathy, unspecified; I27.2 Other secondary pulmonary hypertension; L03.116 Cellulitis of left lower limb; F15.10 Other stimulant abuse, uncomplicated; M10.9 Gout, unspecified; Z91.19 Patient's noncompliance with other medical treatment and regimen; E66.9 Obesity, unspecified; Z68.30 Body mass index [BMI] 30.0-30.9, adult; R00.0 Tachycardia, unspecified
CPT/HCPCS: 36415; 71010; 80048; 80053; 80061; 80306; 80307; 82550; 82553; 83036; 83735; 83880; 84100; 84443; 84484; 84560; 85025; 85610; 85730; 93005; 93306; 96372; 96374; 96375; J1940; J0360; J2060; J2270; J3475